=== PATIENT | male | born 1995 | race African-American/Black ===

== ENCOUNTER 2016-07-01 15:11 | Emergency (ER) | payer OTHER ==
[2016-07-01 15:34] VITALS: BP 148/69; PULSE 78; RESP 20; TEMP 98.7
[2016-07-01] MEDS ORDERED: metroNIDAZOLE 500 MG TAB PO STA (16:00)
--- NOTE | 2016-07-01 16:20 | ED ---
General Adult HPI - General Chief complaint: Recheck/Abnormal Lab/Rx Stated complaint: Med/Refill Time Seen by Provider: 07/01/16 15:31 Source: patient, RN notes reviewed Mode of arrival: ambulatory Limitations: no limitations - History of Present Illness Initial comments: Patient is a 20-year-old male presenting to the with chief complaint of 79 and medication refill. Patient reports that he has been diagnosed with bipolar and is on Zoloft, Seroquel, lithium, Xanax, Adderall. Patient reports that he has been out of his lithium and Seroquel for one day however he has been out of his Zoloft and Xanax and Adderall for approximately 2 weeks. Patient reports that he's gets these prescriptions by primary care provider Dr. Sultana. Patient reports that he received a letter when the male stating he is not able to see his primary care physician anymore due to insurance reasons. Patient reports is actively looking for a new primary to be able to fill these prescriptions. Patient states that he he has seen a doctor Alicia i.e. his psychiatrist and he sees him monthly. Patient reports that he he is having no suicidal or homicidal ideations. He denies any other abnormal psychiatric symptoms including hallucinations or racing thoughts. Patient states that he has been on all these medications for quite some time.Patient denies any recent fever, chills, shortness of breath, chest pain, back pain, abdominal pain, nausea vomiting, numbness or tingling, dysuria or hematuria, constipation or diarrhea, headaches or visual changes, or any other current symptoms - Related Data Home Medications Medication Instructions Recorded Confirmed Metoprolol Tartrate [Lopressor] 100 mg PO BID 03/30/16 04/11/16 Previous Rx's Medication Instructions Recorded amLODIPine [Norvasc] 10 mg PO DAILY 20 Days 03/30/16 Nicotine 14Mg/24Hr Patch [Habitrol] 1 patch TRANSDERM DAILY #30 patch 04/15/16 QUEtiapine [SEROquel] 300 mg PO HS #90 tab 04/15/16 Sertraline [Zoloft] 200 mg PO DAILY #60 tab 04/15/16 hydrOXYzine PAMOATE [Vistaril] 50 mg PO Q6HR PRN #60 cap 04/15/16 [place] Carbonate 600 mg PO HS #14 capsule 07/01/16 QUEtiapine [SEROquel] 300 mg PO DAILY #21 tablet 07/01/16 Sertraline [Zoloft] 200 mg PO DAILY #14 tab 07/01/16 Allergies Allergy/AdvReac Type Severity Reaction Status Date / Time No Known Allergies Allergy Verified 07/01/16 15:36 Review of Systems ROS Statement: Those systems with pertinent positive or pertinent negative responses have been documented in the HPI. ROS Other: All systems not noted in ROS Statement are negative. Past Medical History Past Medical History: No Reported History Additional Past Medical History / Comment(s): esophageal tear hx of and overdose History of Any Multi-Drug Resistant Organisms: None Reported Past Surgical History: No Surgical Hx Reported Additional Past Surgical History / Comment(s): trach peg tube Past Anesthesia/Blood Transfusion Reactions: No Reported Reaction Past Psychological History: ADD/ADHD, Anxiety, Depression Smoking Status: Current every day smoker Past Alcohol Use History: Abuse Past Drug Use History: None Reported - Past Family History Mother Family Medical History: Myocardial Infarction ([place]) Father Family Medical History: Myocardial Infarction ([place]) General Exam - General Exam Comments Initial Comments: Is a pleasant -[place] 20-year-old male. He does not appear to be in any acute distress. Limitations: no limitations General appearance: alert, in no apparent distress Head exam: Present: atraumatic, normocephalic, normal inspection Eye exam: Present: normal appearance, PERRL, EOMI. Absent: scleral icterus, conjunctival injection, periorbital swelling ENT exam: Present: normal exam, mucous membranes moist Neck exam: Present: normal inspection. Absent: tenderness, meningismus, lymphadenopathy Respiratory exam: Present: normal lung sounds bilaterally. Absent: respiratory distress, wheezes, rales, rhonchi, stridor Cardiovascular Exam: Present: regular rate, normal rhythm, normal heart sounds. Absent: systolic murmur, diastolic murmur, rubs, gallop, clicks GI/Abdominal exam: Present: soft, normal bowel sounds. Absent: distended, tenderness, guarding, rebound, rigid Extremities exam: Present: normal inspection, full ROM, normal capillary refill. Absent: tenderness, pedal edema, joint swelling, calf tenderness Back exam: Present: normal inspection Neurological exam: Present: alert, oriented X3, CN II-XII intact Psychiatric exam: Present: normal affect, normal mood, other ( denies any suicidal or homicidal ideations. He denies any auditory or visual hallucinations.) Skin exam: Present: warm, dry, intact, normal color. Absent: rash Course Vital Signs 07/01/16 15:29 Temperature 98.7 F Pulse Rate 78 Respiratory 20 Rate Blood Pressure 148/69 O2 Sat by Pulse 98 Oximetry Medical Decision Making - Medical Decision Making Patient is a 20-year-old male presenting to the [facility] requesting medication refill for lithium, Seroquel, Zoloft, Xanax, Adderall. Patient received reflex films of lithium, Seroquel and Zoloft for approximately one week. Patient will not receive any refills for Xanax and Adderall as these are controlled substances. Maps report was ran and patient should still have Adderall from his previous prescription. She receives all of his controlled substance prescriptions from Dr. Woody. Patient has instructed to follow-up with her primary care physician in regards to refilling his prescriptions. I also advised patient to follow-up with keratitis. Patient understands treatment plan will comply. Return parameters were discussed. Disposition Clinical Impression: Medication refill Disposition: HOME SELF-CARE Condition: Good Instructions: Medicine Refill (ED) Additional Instructions: Patient instructed that he needs to follow-up with her primary care physician if refill these prescriptions. Return to the [facility] if any alarming signs or symptoms occur. Prescriptions: [place] Carbonate 600 mg PO HS #14 capsule QUEtiapine [SEROquel] 300 mg PO DAILY #21 tablet Sertraline [Zoloft] 200 mg PO DAILY #14 tab Referrals: Zheng Bustos MD [STAFF PHYSICIAN] - 1-2 days Time of Disposition: 16:16
== END 2016-07-01 16:20 | disposition home or self-care (01) ==
LOC: EC 15:11
DX: Z76.0 Encounter for issue of repeat prescription (principal); F31.9 Bipolar disorder, unspecified; Z79.899 Other long term (current) drug therapy; F41.9 Anxiety disorder, unspecified; F17.200 Nicotine dependence, unspecified, uncomplicated; F90.9 Attention-deficit hyperactivity disorder, unspecified type
CPT/HCPCS: 99281